=== PATIENT | male | born 1990 ===

== ENCOUNTER 2023-04-01 15:09 | Observation (INO) | payer OTHER, SELFPAY ==
[2023-04-01 15:28] LABS: #Eosinphils 0.1 thou/uL (0.0-0.7); #Monocytes 0.4 thou/uL (0.11-0.59); #Neutrophils 1.8 thou/uL (1.40-6.50); %Basophils 0.7 % (0.0-1.0); %Eosinophils 1.8 % (0.0-10.0); %Lymphocytes 45.7 % (21.0-51.0); %Neutrophils 41.6 % (42.0-75.0); Hematocrit 45.4 % (42.0-52.0); Hemoglobin 14.6 g/dL (14.0-18.0); Mean Corpuscular HGB CONC 32.2 g/dL (32.0-36.0); Mean Corpuscular Hemoglobin 28.1 pg (27.0-31.0); Mean Corpuscular Volume 87.3 fl (78.0-98.0); Mean Platelet Volume 10.3 fL (7.4-10.4); Platelet Count 181 10x3/uL (130-400); RBC Distribution Width 12.9 % (11.5-14.5); White Blood Cell (WBC) Count 4.4 10x3/uL (4.8-10.8)
[2023-04-01] MEDS ORDERED: Ketorolac Tromethamine 30 MG/ML VIAL ONE (15:34)
[2023-04-01] MEDS ORDERED: Morphine 4 MG/ML VIAL ONE (15:34)
[2023-04-01] MEDS ORDERED: CEFAZOLIN 2 GM VIAL ONE (15:34)
[2023-04-01 15:49] LABS: ALT (SGPT) 75 U/L (8-55); AST (SGOT) 62 U/L (5-34); Albumin 4.1 g/dL (3.5-5.0); Alkaline Phosphatase 52 U/L (40-110); Anion Gap 13 mmol/L (10-20); BUN (Urea Nitrogen) 6 mg/dL (8.9-20.6); Bilirubin, Total 0.4 mg/dL (0.2-1.2); Calc. Creatinine Clearance 0 mL/min (70-130); Calcium 9.4 mg/dL (7.8-10.44); Carbon Dioxide 26 mmol/L (22-29); Chloride 106 mmol/L (98-107); Estimated GFR 100; Glucose 90 mg/dL (70-105); Potassium 3.9 mmol/L (3.5-5.1); Protein, Total 7.1 g/dL (6.0-8.3); Sodium 141 mmol/L (136-145)
[2023-04-01] MEDS ORDERED: Midazolam HCl 2 mg/2 ml Vial ONE (16:16)
[2023-04-01] MEDS ORDERED: fentaNYL PF 100 MCG/2 ML SYRINGE ONE (16:16)
[2023-04-01] MEDS ORDERED: Sodium Chloride 0.9% 1,000 ML IV SCH (17:00)
[2023-04-01] MEDS ORDERED: CEFAZOLIN 2 GM in Sodium Chloride 0.9% 100 ML IVPB SCH ×2 (17:00→23:59)
[2023-04-01] MEDS ORDERED: Ondansetron PF 4 MG/2 ML Vial ONE (17:05)
[2023-04-01] MEDS ORDERED: Succinylcholine 200 MG/10 ml SYRINGE FS ONE (17:05)
[2023-04-01] MEDS ORDERED: Lidocaine 1% PF 5 ML VIAL ONE (17:05)
[2023-04-01] MEDS ORDERED: PROPOFOL 200 MG/20 ML VIAL ONE (17:05)
[2023-04-01] MEDS ORDERED: Dexamethasone 20 MG/5 ML VIAL ONE (17:05)
[2023-04-01] MEDS ORDERED: traMADol HCl 50 MG TAB PO PRN (17:15)
[2023-04-01] MEDS ORDERED: Ipratropium/Albuterol 3 ML NEB NEB PRN (17:15)
[2023-04-01] MEDS ORDERED: Morphine 2 MG/ML VIAL SLOW IVP PRN (17:15)
[2023-04-01] MEDS ORDERED: Cyclobenzaprine 10 MG TAB PO PRN (17:15)
[2023-04-01] MEDS ORDERED: Ondansetron ODT 4 MG TAB PO PRN (17:15)
[2023-04-01] MEDS ORDERED: Ropivacaine 0.5% HCl/PF (150 MG/30 ML VIAL) ONE ×2 (17:21→17:23)
[2023-04-01] MEDS ORDERED: traMADol HCl 50 MG TAB PO SCH (18:00)
[2023-04-01] MEDS ORDERED: Ibuprofen 600 MG TAB PO SCH (18:00)
[2023-04-01] MEDS ORDERED: Acetaminophen 325 MG TAB PO SCH (18:00)
[2023-04-01] MEDS ORDERED: Senokot S 8.6-50 MG TAB PO SCH (21:00)
[2023-04-02] MEDS ORDERED: Polyethylene Glycol 3350 17 GM Packet PO SCH (09:00)
== END 2023-04-01 19:47 | disposition home or self-care (01) ==
LOC: ERS 15:09 → SURG B 16:33 → SURG A 19:24
PROVIDERS: ADMIT Specialist; ATTEND Orthopaedic Surgery
PROC: 0SCD0ZZ Extirpation of Matter from Left Knee Joint, Open Approach (ICD-10-PCS; principal; 2023-04-01)
DX: S81.042A Puncture wound with foreign body, left knee, initial encounter (principal); V49.40XA Driver injured in collision with unspecified motor vehicles in traffic accident, initial encounter
CPT/HCPCS: 80053; 85025; 96365; 96375; G0390; J1100; J1885; J2250; J2270; J2405; J2704; J2795; J7050